=== PATIENT | female | born 1990 | race Caucasian/White ===

== ENCOUNTER → 2016-04-19 | Outpatient (REF) | payer BC | LOC: LAB 09:47 | PROVIDERS: ATTEND Family Medicine | DX: Z53.9 Procedure and treatment not carried out, unspecified reason (principal) ==

== ENCOUNTER → 2016-04-19 | Outpatient (CLI) | payer BC | LOC: RAD 09:49 | PROVIDERS: ATTEND Family Medicine | DX: M79.641 Pain in right hand (principal); S62.390A Other fracture of second metacarpal bone, right hand, initial encounter for closed fracture; X58.XXXA Exposure to other specified factors, initial encounter | CPT/HCPCS: 73130 ==